=== PATIENT | male | born 1935 | race Caucasian/White ===

== ENCOUNTER 2022-12-09 16:44 | Emergency (ER) | payer MEDICARE, BC ==
[2022-12-09] MEDS ORDERED: Bacitracin Oint 1 GM U/D Packet TOP ONE (16:50)
[2022-12-09] MEDS ORDERED: Lidocaine 1% 10 ML MDV INJECT ONE (16:50)
[2022-12-09] MEDS ORDERED: Diphtheria,Pertussis(Acell),Tetanus Vaccine 0.5 ML Syringe IM ONE (17:06)
[2022-12-09 17:35] VITALS: BP 148/76; PULSE 79
== END 2022-12-09 18:33 | disposition home or self-care (01) ==
LOC: JP.ED 16:44
DX: S01.111A Laceration without foreign body of right eyelid and periocular area, initial encounter (principal); E78.00 Pure hypercholesterolemia, unspecified; I10 Essential (primary) hypertension; Z23 Encounter for immunization; Z88.0 Allergy status to penicillin; Z79.899 Other long term (current) drug therapy; W18.30XA Fall on same level, unspecified, initial encounter; Y93.01 Activity, walking, marching and hiking; Y92.510 Bank as the place of occurrence of the external cause
CPT/HCPCS: 12011; 12013; 90471; 90715; 99282; 99283-25